=== PATIENT | male | born 1945 | race Caucasian/White ===

== ENCOUNTER 2019-03-13 13:50 | Outpatient (CLI) | payer MEDICARE, BC ==
[~2019-03-13 13:50] MED LIST: Iopamidol 370 76% 100 ML VIAL ONE
--- NOTE | 2019-03-13 15:07 | CT ---
CTA Angio Neck W WO Con History: [G 45.3 amaurosis fugax] Comparison: CT brain January 31, 2017 Findings: CT angiogram of the neck performed after the intravenous ministration of contrast. 3-D ramy mata provided. There is advanced degenerative disc space disease at C5/C6 and C6/C7 with circumferential disc osteop hyte complexes. No acute fracture or malalignment. Moderate right layering pleural effusion. No cervical adenopathy. The globes are normal. Thyroid is unremarkable. Vessels: Visualized portion of the transverse aorta is patent. High-grade stenosis right vertebral ar isatu. No significant flow within the cervical vertebral artery from the origin to the level of C3. Minimal contrast within the cervical vertebral artery at C2. No significant flow within the intradura l vertebral artery from the level of the dural penetration to the PICA with minimal reconstitution at the AICA. The left vertebral artery is patent. Visualized portion of the vertebral arteries patent. Right common carotid artery origin is patent. High-grade plaque within the right carotid bulb. There is a focal area of approximately 80% stenosis proximal right internal carotid artery due to extensive plaque for craniocaudal length of 8 mm. Remainder the cervical internal carotid artery is p atent. Origin of the left common carotid artery is patent. High-grade calcifications of the left carotid bul b. At the bulb there is approximately 70% stenosis internal carotid artery for a craniocaudal length of 5 mm. Remainder the internal carotid artery is patent. Impression: 1. 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 Extent 2. 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 3. Multilevel degenerative changes of the mid and lower cervical spine. 3. Moderate layering right pleural effusion with apical capping.
== END 2019-03-13 13:51 | disposition home or self-care (01) ==
LOC: BICCT 13:50
PROVIDERS: ATTEND Thoracic Surgery (Cardiothoracic Vascular Surgery)
DX: G45.3 Amaurosis fugax (principal); M47.812 Spondylosis without myelopathy or radiculopathy, cervical region; J90 Pleural effusion, not elsewhere classified; I65.23 Occlusion and stenosis of bilateral carotid arteries; I65.01 Occlusion and stenosis of right vertebral artery
CPT/HCPCS: 70498; 82565; Q9967